=== PATIENT | male | born 1990 | race Caucasian/White ===

== ENCOUNTER 2016-06-06 17:33 | Emergency (ER) | payer BC, MEDICAID ==
[~2016-06-06] VITALS: Ht 190.5 cm; Wt 97.5 kg
[2016-06-06 18:20] LABS: Basophils # (auto) 0 uL; Basophils % (auto) 0.2 % (0.0-2.0); DEFINITIVE VIEW TRANSMISSION; Eosinophils # (auto) 0 uL; Eosinophils % (auto) 0.3 % (0.0-7.0); Hemoglobin 17.7 g/dL (13.5-17.5); Lymphocytes # (auto) 0.2 uL; Lymphocytes % (auto) 3.1 % (10.0-50.0); Mean Corpuscular Hemoglobin 27.4 pg (28.0-32.0); Mean Corpuscular Volume 80.5 fL (80.0-100.0); Mean Platelet Volume 9.3 fL (7.4-10.4); Monocytes # (auto) 0.3 uL; Monocytes % (auto) 3.8 % (0.0-12.0); Neutrophils # (auto) 6.2 uL; Neutrophils % (auto) 92.6 % (37.0-80.0); Platelet Count (auto) 175 10^3/uL (140-450); Red Cell Distribution Width 12.6 % (11.6-16.0); White Blood Cell 6.7 10^3/uL (4.4-10.8)
[2016-06-06 18:29] LABS: Urine RBC None Seen /hpf (0 - 3)
[2016-06-06 18:41] LABS: Albumin 4.8 g/dL (3.4-5.0); BUN/Creatinine Ratio 16.8; Calcium 8.9 mg/dL (8.5-10.1); Potassium 3.5 mmol/L (3.5-5.1)
[2016-06-06 18:44] LABS: Bilirubin, Total 1.5 mg/dL (0.2-1.0); Total Protein 8.2 g/dL (6.4-8.2)
[2016-06-06 19:14] LABS: Urine Bilirubin Negative (Negative); Urine Blood Negative /uL (Negative); Urine Color Yellow (Yellow); Urine Glucose Normal (Normal); Urine Ketone Negative (Negative); Urine Mucus FEW (None Seen); Urine Nitrite Negative (Negative); Urine Squamous Epithelial Cell FEW /hpf (<5); Urine Urobilinogen Normal (Negative); Urine pH 5.5 (5.0-8.0)
[2016-06-06] MEDS ORDERED: SODIUM CHLORIDE 0.9% 1,000 ML IV ONE (19:30)
[2016-06-06 21:12] VITALS: BP 128/72
== END 2016-06-06 21:13 | disposition home or self-care (01) ==
LOC: ER 17:33
DX: B34.9 Viral infection, unspecified (principal); K52.9 Noninfective gastroenteritis and colitis, unspecified
CPT/HCPCS: 36415; 71010; 80053; 81001; 85025; 93005; 94761; 96360; 99285; J7030

== ENCOUNTER 2021-06-22 12:00 | Emergency (ER) | payer BC, MEDICAID, OTHER ==
[~2021-06-22] VITALS: Ht 188 cm; Wt 85.7 kg
[2021-06-22] MEDS ORDERED: IOHEXOL 350 MG/ML 100ML IJ ONE (12:35)
[2021-06-22 13:26] LABS: Basophils # (auto) 0 10 ^3/uL (0-0.2); Basophils % (auto) 0.3 % (0.0-2.0); Eosinophils # (auto) 0 10 ^3/uL (0-0.8); Eosinophils % (auto) 0.5 % (0.0-7.0); Hematocrit 50.3 % (41.0-53.0); Hemoglobin 17.2 g/dL (13.5-17.5); Lymphocytes # (auto) 0.8 10 ^3/uL (0.4-5.4); Lymphocytes % (auto) 17.2 % (10.0-50.0); Mean Corpuscular Hemoglobin 29.3 pg (28.0-32.0); Mean Corpuscular Hgb Conc. 34.2 g/dL (32.0-36.0); Mean Corpuscular Volume 85.7 fL (80.0-100.0); Monocytes # (auto) 0.4 10 ^3/uL (0-1.3); Monocytes % (auto) 8.9 % (0.0-12.0); Neutrophils # (auto) 3.5 10 ^3/uL (1.6-8.6); Neutrophils % (auto) 73.1 % (37.0-80.0); Nucleated Red Blood Cells % 0.8 %; Red Blood Cells 5.87 10^6/uL (4.5-5.90); Red Cell Distribution Width 13.4 % (11.8-14.3); White Blood Cell 4.8 10^3/uL (4.4-10.8)
[2021-06-22 13:40] LABS: Albumin 4.6 g/dL (3.4-5.0); Calcium 9.7 mg/dL (8.5-10.1); Potassium 4.1 mmol/L (3.5-5.1)
[2021-06-22 13:43] LABS: BUN/Creatinine Ratio 21.8; Total Protein 7.9 g/dL (6.4-8.2)
[2021-06-22 16:00] VITALS: BP 111/62
== END 2021-06-22 17:41 | disposition home or self-care (01) ==
LOC: ER 12:00
DX: M79.10 Myalgia, unspecified site (principal); R42 Dizziness and giddiness
CPT/HCPCS: 36415; 70496; 70498; 80053; 85025; 99285; Q9967

== ENCOUNTER 2023-03-15 17:55 | Emergency (ER) | payer OTHER ==
[~2023-03-15] VITALS: Ht 190.5 cm; Wt 80.4 kg
[2023-03-15] MEDS ORDERED: ACETAMINOPHEN 500 MG TAB PO ONE (19:00)
[2023-03-15] MEDS ORDERED: LACTATED RINGER'S 2,000 ML IV ONE (19:15)
[2023-03-15] MEDS ORDERED: ONDANSETRON ODT 4 MG TAB PO ONE (19:15)
[2023-03-15 19:47] LABS: Basophils # (auto) 0 10 ^3/uL (0-0.2); Basophils % (auto) 0.1 % (0.0-2.0); Eosinophils # (auto) 0 10 ^3/uL (0-0.8); Lymphocytes # (auto) 0.1 10 ^3/uL (0.4-5.4); Monocytes # (auto) 0.4 10 ^3/uL (0-1.3); Nucleated Red Blood Cells % 0.2 %; White Blood Cell 5.5 10^3/uL (4.4-10.8)
[2023-03-15 19:49] LABS: Eosinophils % (auto) 0.1 % (0.0-7.0); Hematocrit 53.8 % (41.0-53.0); Hemoglobin 18.3 g/dL (13.5-17.5); Lymphocytes % (auto) 2.5 % (10.0-50.0); Mean Corpuscular Hemoglobin 28.7 pg (28.0-32.0); Mean Corpuscular Hgb Conc. 34.1 g/dL (32.0-36.0); Mean Corpuscular Volume 84.3 fL (80.0-100.0); Monocytes % (auto) 7.1 % (0.0-12.0); Neutrophils # (auto) 4.9 10 ^3/uL (1.6-8.6); Neutrophils % (auto) 90.2 % (37.0-80.0); Red Blood Cells 6.38 10^6/uL (4.5-5.90); Red Cell Distribution Width 13.4 % (11.8-14.3)
[2023-03-15 20:07] LABS: Alanine Aminotransferase 26 U/L (7-40); Albumin 5.3 g/dL (3.2-4.8); Alkaline Phosphatase 41 U/L (46-116); Anion Gap 7 (5-15); Aspartate Aminotransferase 15 U/L (13-40); BUN/Creatinine Ratio 22.3 (10.0-20.0); Bilirubin, Total 2.5 mg/dL (0.2-1.0); Blood Urea Nitrogen 25 mg/dL (9-23); Calcium 9.8 mg/dL (8.7-10.4); Carbon Dioxide 29 mmol/L (20-30); Chloride 102 mmol/L (98-107); Glucose 124 mg/dL (74-106); Lipase 25 U/L (12-53); Magnesium 1.6 mg/dL (1.6-2.6); Potassium 4.1 mmol/L (3.5-5.1); Sodium 138 mmol/L (136-145); Total Protein 7.6 g/dL (5.7-8.2)
[2023-03-15] MEDS ORDERED: SODIUM CHLORIDE 0.9% 2,000 ML IV ONE (20:15)
[2023-03-15] MEDS ORDERED: ONDANSETRON HCL 4 MG/2 ML VIAL IV ONE (20:30)
[2023-03-15] MEDS ORDERED: LIDOCAINE VISCOUS 2% 15ML UD PO ONE (20:30)
[2023-03-15] MEDS ORDERED: DONNATAL 5ml ORAL Elix (BELLADONNA ALK-PHENOBARB) PO ONE (20:30)
[2023-03-15] MEDS ORDERED: MAALOX PLUS or MAALOX 30 ML PO ONE (20:30)
[2023-03-15 21:57] LABS: Urine Bacteria NONE SEEN /hpf (None Seen); Urine Blood Negative /uL (Negative); Urine Clarity Clear (Clear); Urine Color Yellow (Yellow); Urine Mucus FEW (None Seen); Urine Protein, UAD 1+ (Negative); Urine Specific Gravity 1.037 (1.001-1.035); Urine Urobilinogen Normal (Negative); Urine WBC 3 /hpf (0 - 3)
[2023-03-15] MEDS ORDERED: ZOFR4T PO (21:59)
[2023-03-15] MEDS ORDERED: DICY10CA PO (21:59)
[2023-03-15 22:10] VITALS: BP 102/51; PULSE 79; RESP 18; O2SAT 98
[2023-03-15 22:22] VITALS: TEMP 99.4
== END 2023-03-15 22:25 | disposition home or self-care (01) ==
LOC: ER 17:55
DX: R10.84 Generalized abdominal pain (principal); E86.0 Dehydration
CPT/HCPCS: 36415; 80053; 81001; 83605; 83690; 83735; 85025; 87040; 93005; 96361; 96374; 99284; J2405; J7030